=== PATIENT | female | born 1955 | race Caucasian/White ===

== ENCOUNTER 2019-10-11 09:23 | Outpatient (RCR) | payer BC | END 2019-10-11 10:00 | disposition still patient (30) | LOC: OT 09:23 | DX: S52.531D Colles' fracture of right radius, subsequent encounter for closed fracture with routine healing (principal) ==

== ENCOUNTER 2020-04-07 14:00 | Outpatient (RCR) | payer BC | END 2020-04-27 | disposition home or self-care (01) | LOC: OT | DX: T81.89XA Other complications of procedures, not elsewhere classified, initial encounter (principal) ==

== ENCOUNTER 2020-05-01 14:30 | Outpatient (RCR) | payer BC | END 2020-06-02 15:15 | disposition home or self-care (01) | LOC: OT 14:30 | DX: T14.8XXA Other injury of unspecified body region, initial encounter (principal) ==

== ENCOUNTER 2020-12-21 10:38 | Emergency (ER) | payer BC ==
[2020-12-21] MEDS ORDERED: LISINOPRIL20 MG PO (10:48)
[2020-12-21] MEDS ORDERED: METOPROLOL SUCC25 M1 PO (10:48)
[2020-12-21 11:18] LABS: BASO # 0.01 (0.02-0.10); EOS # 0.01 (0.04-0.40); EOS % 0.3 % (1.0-5.0); HEMATOCRIT 38.6 % (37.0-47.0); HEMOGLOBIN 13.3 g/dL (12.5-16.0); LYMPH# 0.81 (1.50-4.00); MEAN CELL VOLUME 83 fl (78-100); MEAN CORPUSCULAR HEMOGLOBIN 28 pg (27-31); MEAN CORPUSCULAR HGB CONC 35 g/dL (33-37); MEAN PLATELET VOLUME 10.6 fl (7.4-10.4); MONO # 0.28 (0.20-0.80); NEU # 1.75 (1.40-6.50); PLATELET COUNT 136 K/mm3 (130-400); RED BLOOD COUNT 4.68 M/mm3 (4.10-5.30); RED CELL DISTRIBUTION WIDTH 12.3 % (11.5-14.5); WHITE BLOOD COUNT 2.9 K/mm3 (4.8-10.8)
[2020-12-21 11:23] LABS: ALBUMIN 4.1 g/dL (3.4-4.8); POTASSIUM 4.8 mmol/L (3.5-5.1); SODIUM 136 mmol/L (136-145)
[2020-12-21 11:25] LABS: CALCIUM 9.2 mg/dL (8.3-10.5)
[2020-12-21 11:26] LABS: GLUCOSE 96 mg/dL (65-105); TOTAL PROTEIN 7.2 g/dL (6.2-8.1)
[2020-12-21 11:27] LABS: CARBON DIOXIDE 23 mmol/L (23-31)
[2020-12-21 11:28] LABS: TOTAL BILIRUBIN 0.3 mg/dL (0.2-1.2)
[2020-12-21 11:31] LABS: AST-SGOT 24 U/L (5-34)
[2020-12-21 11:32] LABS: ALT/SGPT 16 U/L (0-55)
[2020-12-21 11:33] LABS: LIPASE 31 U/L (8-78)
[2020-12-21 11:47] LABS: URINE APPEARANCE CLEAR; URINE BILIRUBIN NEGATIVE (NEGATIVE); URINE BLOOD NEGATIVE (NEGATIVE); URINE COLOR YELLOW; URINE GLUCOSE NEGATIVE (NEGATIVE); URINE KETONE NEGATIVE (NEGATIVE); URINE LEUKOCYTE ESTERASE NEGATIVE (NEGATIVE); URINE NITRATE NEGATIVE (NEGATIVE); URINE PROTEIN(semi-quant) NEGATIVE (NEGATIVE); URINE UROBILINOGEN NORMAL (NORMAL); URINE WBC 0-1 /hpf (0-3)
[2020-12-21 11:54] LABS: TROPONIN-I < 0.03 ng/mL (<0.030)
[2020-12-21 13:32] VITALS: BP 135/78
[2020-12-21] MEDS ORDERED: PREDNISONE20 M1 PO (15:49)
[2020-12-21] MEDS ORDERED: PROAIR HFA0.09 MG/AC IH (15:49)
== END 2020-12-21 13:25 | disposition home or self-care (01) ==
LOC: ED 10:38
PROVIDERS: Nurse Practitioner
DX: U07.1 COVID-19 (principal); I10 Essential (primary) hypertension; Z79.899 Other long term (current) drug therapy